=== PATIENT | female | born 1975 | race American Indian/Alaskan Native ===

== ENCOUNTER 2017-04-13 08:32 | Inpatient (IN) | payer MEDICAID ==
[2017-04-13 08:51] VITALS: O2SAT 98
--- NOTE | 2017-04-13 08:52 | C.PDOC ---
History Of Present Illness Patient is a 41 year old female who is psychiatric transfer accepted for depression. Patient states she has suicidal ideation, reports she stopped taking her regular medications thinking that would cause her to . Patient also reports daily ETOH use. Denies any physical complaints at this time. Time Seen by Provider: 04/13/17 08:36 Chief Complaint (Nursing): Psychiatric Evaluation History Per: Patient History/Exam Limitations: no limitations Onset/Duration Of Symptoms: Days Current Symptoms Are (Timing): Still Present Suicide/Self Injury Attempted (Context): Other (Stopped taking medications) Modifying Factor(s): Alcohol Associated Symptoms: Depression, Suicidal Thoughts, Suicidal Plan Involuntary Hold By: None Recent travel outside of the [place]: No Past Medical History Reviewed: Historical Data, Nursing Documentation, Vital Signs Vital Signs: Last Vital Signs Temp 97.6 F 04/13/17 08:43 Pulse 77 04/13/17 08:43 Resp 20 04/13/17 08:43 BP 126/80 04/13/17 08:54 Pulse Ox 98 04/13/17 08:52 - Medical History PMH: HTN, Hypercholesterolemia Surgical History: No Surg Hx - Social History Hx Alcohol Use: Yes Hx Substance Use: Yes - Immunization History Hx Tetanus Toxoid Vaccination: No Hx Influenza Vaccination: No Hx Pneumococcal Vaccination: No Review Of Systems Except As Marked, All Systems Reviewed And Found Negative. Psych: Positive for: Depression, Suicidal ideation Physical Exam - Physical Exam Appears: Non-toxic, No Acute Distress Skin: Normal Color, Warm, Dry Head: Atraumatic, Normacephalic Eye(s): bilateral: Normal Inspection, EOMI Oral Mucosa: Moist Chest: Symmetrical, No Tenderness Cardiovascular: Rhythm Regular, No Murmur Respiratory: Normal Breath Sounds, No Rales, No Rhonchi, No Wheezing Gastrointestinal/Abdominal: Soft, No Tenderness Neurological/Psych: Oriented x3, Normal Speech, Normal Cognition, No Other ( Tremors) ED Course And Treatment O2 Sat by Pulse Oximetry: 98 (Room air) Pulse Ox Interpretation: Normal Medical Decision Making Medical Decision Making: No signs of ETOH withdrawal at this time. Disposition - Disposition Disposition Time: 08:53 - Clinical Impression Clinical Impression: Depression - Scribe Statement The provider has reviewed the documentation as recorded by the Scribe Kojo Gonzales All medical record entries made by the Scribe were at my direction and personally dictated by me. I have reviewed the chart and agree that the record accurately reflects my personal performance of the history, physical exam, medical decision making, and the department course for this patient. I have also personally directed, reviewed, and agree with the discharge instructions and disposition.
[2017-04-14] MEDS: Multiple Vitamins Tab PO SCH (09:25)
--- NOTE | 2017-04-14 12:45 | PCM.PYCHPN ---
Psychiatric Progress Note - Psychiatric Progress Note Patient seen today, length of contact: 15 min Patient Chief Complaint: I was feeling depressed and suicidal Problems Identified/Issues Discussed: Patient seen and evaluated, chart reviewed and discussed with the nurse. As per the staff, patient still appears isolated, depressed and withdrawn. Patient still reports depressed mood and reports at times feelings of hopelessness or helplessness. She reports withdrawal symptoms including cramps, back pain and sweating. However she denies any auditory or visual hallucinations or any psychotic symptoms. She is compliant with her medications and denies any side effects. Supportive therapy and psychoeducation were given. Medication Change: No Medical Record Reviewed: Yes Mental Status Examination - Cognitive Function Orientation: Person, Place, Situation, Time Memory: Intact Attention: WNL Concentration: Poor Association: WNL Fund of Knowledge: Poor - Mood Mood: Depressed, Anxious - Affect Affect: Constricted, Depressed - Speech Speech: Soft - Formal Thought Process Formal Thought Process: No Impairment - Suicidal Ideation Suicidal Ideation: No - Homicidal Ideation Homicidal Ideation: No Goal/Treatment Plan - Goal/Treatment Plan Need for Continued Stay: Discharge may exacerbated symptoms, Severe functional impairment Progress Toward Problem(s) and Goals/Treatment Plan: Major depressive disorder severe without psychotic features CBT Psychoeducation Supportive therapy, group therapy, individual therapy Zoloft 50 mg by mouth daily Trazodone 50 mg by mouth daily at bedtime Alcohol use disorder severe CBT Psychoeducation Supportive therapy, individual therapy Use [place] for abstinence Alcohol withdrawal uncomplicated CBT Psychoeducation Supportive therapy, individual therapy Librium when necessary Folic acid/thiamine/multivitamin Cocaine use disorder severe CBT Psychoeducation Supportive therapy, individual therapy Use [place] for abstinence HTN continue prescribed medications Monitor signs and symptoms DM continue prescribed medications Monitor signs and symptoms - Smoking Cessation Smoking Cessation Initiated: No
--- NOTE | 2017-04-14 14:51 | PCM.PSYCH ---
Initial Psychiatric Evaluation - Initial Psychiatric Evaluation Type of Admission: Voluntary Legal Status: Capacity Chief Complaint (in patient's own words): I was feeling depressed and suicidal History of Present Illness and Precipitating Events: This is a 41 years old AAF, who is currently unemployed and living alone with a history of depressive disorder, cocaine dependence and alcohol dependence came to the ED with alcohol intoxication, depressed mood and suicidal ideation. Patient reports a long history of depression, drinking and cocaine abuse. As per the patient, she is consuming increasing amounts of alcohol and cocaine since past few weeks. Patient reports that yesterday she consumed up to 3 pints of vodka and 20 24oz beers along with $50 worth of cocaine, became increasingly depressed and developed suicidal ideation with a plan to slit her wrist so came to the hospital to get help. Patient reports depressed and irritable mood, reports feelings of hopelessness and helplessness. She also reports withdrawal symptoms including nausea, shakes , anxiety and headaches. However, she denies any psychotic or manic symptoms. Patient denies any other substance abuse. Past medical history HTN, DM, Hypercholestrolimia Current Medications: Active Medications Generic Name Dose Route Start Last Admin Trade Name Freq PRN Reason Stop Dose Admin Acetaminophen 650 mg 04/13/17 09:29 Tylenol 325mg Tab PO Q6 PRN Fever >100.4 F Benztropine Mesylate 2 mg 04/13/17 09:29 04/13/17 09:53 Cogentin PO 2 mg Q6 PRN Administration Extra Pyramidal Symptoms Diphenhydramine HCl 50 mg 04/13/17 09:29 Benadryl PO Q6 PRN Extra Pyramidal Symptoms Haloperidol 5 mg 04/13/17 09:29 04/13/17 09:53 Haldol PO 5 mg Q8 PRN Administration Moderate Agitation Loperamide HCl 2 mg 04/13/17 09:29 Imodium PO Q8 PRN Diarrhea Ondansetron HCl 4 mg 04/13/17 09:29 Zofran Tab PO Q8H PRN Nausea/Vomiting Trazodone HCl 50 mg 04/13/17 22:00 Desyrel PO HS [facility] Past Psychiatric History - Past Psychiatric History Previous Treatment History: None Pertinent Medical Hx (Current Medical&Sleep Prob, Allergies): Allergies Allergy/AdvReac Type Severity Reaction Status Date / Time lisinopril Allergy SWELLING Verified 07/01/17 08:49 Sulfa (Sulfonamide Allergy RASH Verified 04/13/17 08:49 Antibiotics) Atorvastatin [Lipitor] 40 mg PO HS 04/13/17 MetFORMIN [glucOPHAGE] 1,000 mg PO BID 04/13/17 amLODIPine [Norvasc] 10 mg PO DAILY 04/13/17 Review of Systems - Review of Systems All systems: reviewed and no additional remarkable complaints except - Psychiatric Psychiatric: Anxiety, Depression, Irritability, Suicidal Ideation Mental Status Examination - Personal Presentation Personal Presentation: Looks stated age - Affect Affect: Constricted, Depressed - Motor Activity Motor Activity: Calm - Reliability in Providing Information Reliability in Providing Information: Good - Speech Speech: Organized - Mood Mood: Depressed, Anxious - Formal Thought Process Formal Thought Process: Delusions - Obsessions/Compulsions Obsessions: No Compulsions: No - Cognitive Functions Orientation: Person, Place, Situation, Time Sensorium: Alert Attention/Concentration: Attentive Abstract Thinking: [place] Estimate of Intelligence: Below average Judgement: Imparied, as evidence by: Poor judgement, Imparied, as evidence by: Lack of insight into illness - Risk Risk: Suicidal, Withdrawal, Diminished functioning - Strength & Assets Inventory Strength & Assets Inventory: Intelligence, Family support DSM 5 DX - DSM 5 DSM 5 Diagnosis: Major depressive disorder severe without psychotic features Alcohol use disorder severe Alcohol withdrawal uncomplicated Cocaine use disorder severe - Recommended/Plan of Treatment Treatment Recommendations and Plan of Treatment: Major depressive disorder severe without psychotic features CBT Psychoeducation Supportive therapy, group therapy, individual therapy Zoloft 50 mg by mouth daily Trazodone 50 mg by mouth daily at bedtime Alcohol use disorder severe CBT Psychoeducation Supportive therapy, individual therapy Use [place] for abstinence Alcohol withdrawal uncomplicated CBT Psychoeducation Supportive therapy, individual therapy Librium when necessary Folic acid/thiamine/multivitamin Cocaine use disorder severe CBT Psychoeducation Supportive therapy, individual therapy Use [place] for abstinence HTN continue prescribed medications Monitor signs and symptoms DM continue prescribed medications Monitor signs and symptoms - Smoking Cessation Smoking Cessation Initiated: No
[2017-04-15] MEDS: Multiple Vitamins Tab PO SCH (10:10)
--- NOTE | 2017-04-15 14:08 | PCM.PYCHPN ---
Psychiatric Progress Note - Psychiatric Progress Note Patient seen today, length of contact: 15 min Patient Chief Complaint: I m feeling depressed Problems Identified/Issues Discussed: Patient seen and evaluated, chart reviewed and discussed with the nurse. The patient reports improvement in her mood and reports somewhat improvement in her withdrawal symptoms, but she remained isolated and continued to pace back and forth in the hallways. The pt is compliant with medications and reports no side-effects. Symptoms are improving but needs more time to stabilize. After care discussed, support and psychoeducation given. Medication Change: Yes (Increase Zoloft) Medical Record Reviewed: Yes Mental Status Examination - Cognitive Function Orientation: Person, Place, Situation, Time Memory: Intact Attention: WNL Concentration: Poor Association: WNL Fund of Knowledge: Poor - Mood Mood: Depressed, Anxious - Affect Affect: Constricted, Depressed - Speech Speech: Soft - Formal Thought Process Formal Thought Process: No Impairment - Suicidal Ideation Suicidal Ideation: No - Homicidal Ideation Homicidal Ideation: No Goal/Treatment Plan - Goal/Treatment Plan Need for Continued Stay: Discharge may exacerbated symptoms, Severe functional impairment Progress Toward Problem(s) and Goals/Treatment Plan: Major depressive disorder severe without psychotic features CBT Psychoeducation Supportive therapy, group therapy, individual therapy Zoloft 100 mg by mouth daily Trazodone 50 mg by mouth daily at bedtime Alcohol use disorder severe CBT Psychoeducation Supportive therapy, individual therapy Use [place] for abstinence Alcohol withdrawal uncomplicated CBT Psychoeducation Supportive therapy, individual therapy Librium when necessary Folic acid/thiamine/multivitamin Cocaine use disorder severe CBT Psychoeducation Supportive therapy, individual therapy Use [place] for abstinence HTN continue prescribed medications Monitor signs and symptoms DM continue prescribed medications Monitor signs and symptoms - Smoking Cessation Smoking Cessation Initiated: No
[2017-04-16 07:41] VITALS: RESP 19
[2017-04-16] MEDS: Multiple Vitamins Tab PO SCH (09:42)
--- NOTE | 2017-04-16 12:43 | PCM.PYCHPN ---
Psychiatric Progress Note - Psychiatric Progress Note Patient seen today, length of contact: 15 min Patient Chief Complaint: I m feeling much better' Problems Identified/Issues Discussed: Patient seen and evaluated, chart reviewed and discussed with the nurse. The patient reports improvement in her mood and reports improvement in the withdrawal symptoms. She started socializing, and continued to pace back and forth in the hallways. The pt is compliant with medications and reports no side-effects. Symptoms are improving but needs more time to stabilize. After care discussed, support and psychoeducation given. Medication Change: Yes (Increase Zoloft) Medical Record Reviewed: Yes Mental Status Examination - Cognitive Function Orientation: Person, Place, Situation, Time Memory: Intact Attention: WNL Concentration: Poor Association: WNL Fund of Knowledge: Poor - Mood Mood: Depressed, Anxious - Affect Affect: Constricted, Depressed - Speech Speech: Soft - Formal Thought Process Formal Thought Process: No Impairment - Suicidal Ideation Suicidal Ideation: No - Homicidal Ideation Homicidal Ideation: No Goal/Treatment Plan - Goal/Treatment Plan Need for Continued Stay: Discharge may exacerbated symptoms, Severe functional impairment Progress Toward Problem(s) and Goals/Treatment Plan: Major depressive disorder severe without psychotic features CBT Psychoeducation Supportive therapy, group therapy, individual therapy Zoloft 100 mg by mouth daily Trazodone 50 mg by mouth daily at bedtime Alcohol use disorder severe CBT Psychoeducation Supportive therapy, individual therapy Use [place] for abstinence Alcohol withdrawal uncomplicated CBT Psychoeducation Supportive therapy, individual therapy Librium when necessary Folic acid/thiamine/multivitamin Cocaine use disorder severe CBT Psychoeducation Supportive therapy, individual therapy Use [place] for abstinence HTN continue prescribed medications Monitor signs and symptoms DM continue prescribed medications Monitor signs and symptoms
[2017-04-16] MEDS ORDERED: Magnesium Hydroxide Susp 30 ml UD PO PRN (12:54)
[2017-04-17] MEDS: Multiple Vitamins Tab PO SCH (10:05)
[2017-04-17 13:44] VITALS: TEMP 98.3
--- NOTE | 2017-04-17 13:59 | PCM.PYCHPN ---
Psychiatric Progress Note - Psychiatric Progress Note Patient seen today, length of contact: 15 min Patient Chief Complaint: I am ready to leave Problems Identified/Issues Discussed: Patient seen and evaluated, chart reviewed and discussed with the nurse. The patient reports improvement in her mood and withdrawal symptoms. The pt is compliant with medications and reports no side-effects. Symptoms are improving but needs more time to stabilize. After care discussed, support and psychoeducation given. Medication Change: Yes (Increase Zoloft) Medical Record Reviewed: Yes Mental Status Examination - Cognitive Function Orientation: Person, Place, Situation, Time Memory: Intact Attention: WNL Concentration: WNL Association: WNL Fund of Knowledge: Poor - Mood Mood: Anxious - Affect Affect: Constricted, Depressed - Speech Speech: Soft - Formal Thought Process Formal Thought Process: No Impairment - Suicidal Ideation Suicidal Ideation: No - Homicidal Ideation Homicidal Ideation: No Goal/Treatment Plan - Goal/Treatment Plan Need for Continued Stay: Discharge may exacerbated symptoms, Severe functional impairment Progress Toward Problem(s) and Goals/Treatment Plan: Major depressive disorder severe without psychotic features CBT Psychoeducation Supportive therapy, group therapy, individual therapy Zoloft 100 mg by mouth daily Trazodone 50 mg by mouth daily at bedtime Alcohol use disorder severe CBT Psychoeducation Supportive therapy, individual therapy Use [place] for abstinence Alcohol withdrawal uncomplicated CBT Psychoeducation Supportive therapy, individual therapy Librium when necessary Folic acid/thiamine/multivitamin Cocaine use disorder severe CBT Psychoeducation Supportive therapy, individual therapy Use [place] for abstinence HTN continue prescribed medications Monitor signs and symptoms DM continue prescribed medications Monitor signs and symptoms
[2017-04-17 16:25] VITALS: BP 129/80; PULSE 67
[2017-04-17 19:54] LABS: BLOOD UREA NITROGEN 18 mg/dL (7-17); GFR AFRICAN-AMERICAN > 60; GFR NON-AFRICAN AMERICAN > 60
[2017-04-17 19:55] LABS: BASO # 0.1 K/uL (0.0-0.2); BASO % 1.2 % (0.0-2.0); CALCIUM 9.8 mg/dl (8.6-10.4); EOS # 0.2 K/uL (0.0-0.7); EOS % 2.5 % (0.0-4.0); LYMPH # 2.4 K/uL (1.0-4.3); LYMPH % 36.6 % (20.0-40.0); MAGNESIUM 1.5 mg/dL (1.6-2.3); MEAN CELL VOLUME 91.6 fL (81.0-99.0); MEAN CORPUSCULAR HEMOGLOBIN 29.7 pg (27.0-31.0); MEAN CORPUSCULAR HGB CONC 32.5 g/dL (33.0-37.0); MEAN PLATELET VOLUME 9.4 fL (7.2-11.7); MONO # 0.6 K/uL (0.0-0.8); MONO % 8.8 % (0.0-10.0); NEUT # 3.3 K/uL (1.8-7.0); NEUT % 50.9 % (50.0-75.0); RBC 4.05 Mil/uL (3.80-5.20); WHITE BLOOD COUNT 6.5 K/uL (4.8-10.8)
--- NOTE | 2017-04-17 20:31 | CP.PCM.HP ---
<Krista Ireland - Last Filed: 04/17/17 22:02> History of Present Illness - History of Present Illness History of Present Illness: Medicine CONSULT Note CC: Uncontrolled Sugars HPI: 41F with PMHx of HTN, HLD, and DM who is admitted in for Alcohol abuse disorder and suicidal ideation. Medicine team was consulted to manage her diabetes. Patient reports she does not have a primary care physician. She visits a clinic in [place], where she has labs drawn and provided with prescriptions for her current medications. She reports being complaint with her medications. However, the past month she noticed an increase in her urination and thirst. Admits to having a poor diet, with lots of carbs and sugar. Denied fever, chills, chest pain, abdominal pain, n/v/d/c, dysuria or hematuria. PMHx: HTN, HLD, and DM PSHx: denied Meds: As per MAR All: ACEi and sulfa- angioedema SHx: 15-20 cigarretes per day since age 16, 10 packs of beer (6 cans/ pack) and .5-1.0 L of rum, occasional cocaine use FHx: Unremarkable Present on Admission - Present on Admission Any Indicators Present on Admission: No Review of Systems - Constitutional Constitutional: absent: Chills, Fever - EENT Eyes: absent: Blurred Vision, Change in Vision Ears: absent: Dizziness Nose/Mouth/Throat: absent: Sore Throat, Neck Mass - Breasts Breasts: absent: Pain - Cardiovascular Cardiovascular: absent: Chest Pain, Chest Pain at Rest - Respiratory Respiratory: absent: Cough, Dyspnea - Gastrointestinal Gastrointestinal: absent: Abdominal Pain, Nausea, Vomiting - Genitourinary Genitourinary: absent: Dysuria, Pyuria - Musculoskeletal Musculoskeletal: absent: Back Pain - Integumentary Integumentary: absent: Wounds - Neurological Neurological: absent: Dizziness, Syncope, Weakness - Endocrine Endocrine: Polyphagia, Polyuria Past Patient History - Past Social History Smoking Status: Heavy Smoker > 10 Cigarettes Daily - CARDIAC Hx Hypercholesterolemia: Yes Hx Hypertension: Yes - PULMONARY Hx Respiratory Disorders: No - NEUROLOGICAL Hx Neurological Disorder: No - HEENT Hx HEENT Problems: No - RENAL Hx Chronic Kidney Disease: No - ENDOCRINE/METABOLIC Hx Diabetes Mellitus Type 2: Yes - HEMATOLOGICAL/ONCOLOGICAL Hx Blood Disorders: No - INTEGUMENTARY Hx Dermatological Problems: No - MUSCULOSKELETAL/RHEUMATOLOGICAL Hx Musculoskeletal Disorders: No - GASTROINTESTINAL Hx Gastrointestinal Disorders: No - GENITOURINARY/GYNECOLOGICAL Hx Genitourinary Disorders: No - PSYCHIATRIC Hx Substance Use: Yes - SURGICAL HISTORY Hx Surgeries: No - ANESTHESIA Hx Anesthesia: No Meds Allergies/Adverse Reactions: Allergies Allergy/AdvReac Type Severity Reaction Status Date / Time lisinopril Allergy SWELLING Verified 04/13/17 08:49 Sulfa (Sulfonamide Allergy RASH Verified 04/13/17 08:49 Antibiotics) Physical Exam - Constitutional Appears: No Acute Distress - Head Exam Head Exam: NORMAL INSPECTION, NORMOCEPHALIC - Eye Exam Eye Exam: EOMI, Normal appearance, PERRL Pupil Exam: NORMAL ACCOMODATION - ENT Exam ENT Exam: Mucous Membranes Moist, Normal Exam - Neck Exam Neck exam: Positive for: Normal Inspection - Respiratory Exam Respiratory Exam: Clear to Auscultation Bilateral, NORMAL BREATHING PATTERN - Cardiovascular Exam Cardiovascular Exam: REGULAR RHYTHM, RRR, +S1, +S2 - GI/Abdominal Exam GI & Abdominal Exam: Normal Bowel Sounds, Soft. absent: Tenderness - Extremities Exam Extremities exam: Positive for: normal inspection. Negative for: pedal edema, tenderness, pedal pulses present - Neurological Exam Neurological exam: Alert, Oriented x3 - Psychiatric Exam Psychiatric exam: Normal Affect, Normal Mood - Skin Skin Exam: Intact, Normal Color, Petechiae, Warm Results - Vital Signs Recent Vital Signs: Last Vital Signs Temp 98.3 F 04/17/17 13:43 Pulse 67 04/17/17 16:20 Resp 19 04/17/17 13:43 BP 129/80 04/17/17 16:20 Pulse Ox 98 04/13/17 09:11 - Labs Result Diagrams: 04/17/17 19:34 04/17/17 19:34 Labs: Laboratory Results - last 24 hr 04/17/17 04/17/17 04/17/17 07:42 16:24 19:34 WBC 6.5 RBC 4.05 Hgb 12.0 Hct 37.1 MCV 91.6 MCH 29.7 MCHC 32.5 L RDW 14.0 Plt Count 242 MPV 9.4 Neut % (Auto) 50.9 Lymph % (Auto) 36.6 [place] % (Auto) 8.8 Eos % (Auto) 2.5 Baso % (Auto) 1.2 Neut # 3.3 Lymph # 2.4 Starke # 0.6 Eos # 0.2 Baso # 0.1 Sodium Potassium Chloride Carbon Dioxide Anion Gap BUN Creatinine Est GFR ( Amer) Est GFR (Non-Af Amer) POC Glucose (mg/dL) 266 H 321 H Random Glucose Calcium Phosphorus Magnesium 04/17/17 19:34 WBC RBC Hgb Hct MCV MCH MCHC RDW Plt Count MPV Neut % (Auto) Lymph % (Auto) [place] % (Auto) Eos % (Auto) Baso % (Auto) Neut # Lymph # Starke # Eos # Baso # Sodium 132 Potassium 4.2 Chloride 95 L Carbon Dioxide 23 Anion Gap 18 BUN 18 H Creatinine 0.6 L Est GFR ( Amer) > 60 Est GFR (Non-Af Amer) > 60 POC Glucose (mg/dL) Random Glucose 347 H Calcium 9.8 Phosphorus 4.5 Magnesium 1.5 L Assessment & Plan - Assessment and Plan (Free Text) Assessment: 41F with PMHx of HTN, HLD, and DM who is admitted in 5E for Alcohol abuse disorder and suicidal ideation. Medicine team was consulted to manage her diabetes. Plan: Diabetes * Carb Consistent Diet * Metformin 1000mg PO BID * F/U Hgba1c HTN * Norvasc 10mg PO daily, Clonidine 0.1mg PO Q4H PRN HLD * Crestor 20mg PO QHS * F/U lipid panel Hypomagnesia * Mag OX * F/u mag levels Major depressive disorder severe without psychotic features - management as per Psych Alcohol use disorder severe - management as per Psych Alcohol withdrawal uncomplicated - management as per Psych Cocaine use disorder severe - management as per Psych Prophylactic Measures * GI PPX: Protonix 40mg PO daily DW Beka Hernandez DO, PGY-1 <Neil Gibbs - Last Filed: 04/18/17 06:28> Results - Vital Signs Recent Vital Signs: Last Vital Signs Temp 98.3 F 04/17/17 13:43 Pulse 67 04/17/17 16:20 Resp 19 04/17/17 13:43 BP 129/80 04/17/17 16:20 Pulse Ox 98 04/13/17 09:11 - Labs Result Diagrams: 04/17/17 19:34 04/17/17 19:34 Labs: Laboratory Results - last 24 hr 04/17/17 04/17/17 04/17/17 07:42 16:24 19:34 WBC 6.5 RBC 4.05 Hgb 12.0 Hct 37.1 MCV 91.6 MCH 29.7 MCHC 32.5 L RDW 14.0 Plt Count 242 MPV 9.4 Neut % (Auto) 50.9 Lymph % (Auto) 36.6 [place] % (Auto) 8.8 Eos % (Auto) 2.5 Baso % (Auto) 1.2 Neut # 3.3 Lymph # 2.4 Starke # 0.6 Eos # 0.2 Baso # 0.1 Sodium Potassium Chloride Carbon Dioxide Anion Gap BUN Creatinine Est GFR ( Amer) Est GFR (Non-Af Amer) POC Glucose (mg/dL) 266 H 321 H Random Glucose Calcium Phosphorus Magnesium 04/17/17 19:34 WBC RBC Hgb Hct MCV MCH MCHC RDW Plt Count MPV Neut % (Auto) Lymph % (Auto) [place] % (Auto) Eos % (Auto) Baso % (Auto) Neut # Lymph # Starke # Eos # Baso # Sodium 132 Potassium 4.2 Chloride 95 L Carbon Dioxide 23 Anion Gap 18 BUN 18 H Creatinine 0.6 L Est GFR ( Amer) > 60 Est GFR (Non-Af Amer) > 60 POC Glucose (mg/dL) Random Glucose 347 H Calcium 9.8 Phosphorus 4.5 Magnesium 1.5 L Assessment & Plan - Date & Time Date: 04/18/17 (I have seen and examined the patient. I agree with the findings and plan of care as documented by Dr. Ireland. Medicine consulted to manage diabetes. Also with history of hypertension. Continue metformin. Monitor accuchecks. Continue norvasc and clonidine. Monitor for acute changes. Adjust meds as needed.) Time: 06:27 Attending/Attestation - Attestation I have personally seen and examined this patient.: Yes I have fully participated in the care of the patient.: Yes I have reviewed all pertinent clinical information: Yes
[2017-04-17] MEDS ORDERED: Magnesium Oxide 400 mg Tab UD PO SCH (20:45)
[2017-04-18 08:50] LABS: HEMOGLOBIN 12.2 g/dL (11.0-16.0); MEAN CELL VOLUME 92.1 fL (81.0-99.0); MEAN CORPUSCULAR HEMOGLOBIN 29.6 pg (27.0-31.0); MEAN CORPUSCULAR HGB CONC 32.2 g/dL (33.0-37.0); MEAN PLATELET VOLUME 9.1 fL (7.2-11.7); RBC 4.13 Mil/uL (3.80-5.20); RED CELL DISTRIBUTION WIDTH 13.7 % (11.5-14.5); WHITE BLOOD COUNT 5.2 K/uL (4.8-10.8)
[2017-04-18 09:01] LABS: ALBUMIN 3.8 g/dL (3.5-5.0)
[2017-04-18 09:03] LABS: GFR AFRICAN-AMERICAN > 60; GFR NON-AFRICAN AMERICAN > 60
[2017-04-18 09:04] LABS: ALT/SGPT 42 U/L (9-52); AST/SGOT 24 U/L (14-36); BLOOD UREA NITROGEN 13 mg/dL (7-17)
[2017-04-18 09:05] LABS: CALCIUM 9.2 mg/dl (8.6-10.4); HDL CHOLESTEROL 45 mg/dL (30-70); MAGNESIUM 1.6 mg/dL (1.6-2.3)
[2017-04-18 09:16] LABS: LDL CHOLESTEROL 178 mg/dL (0-129)
[2017-04-18] MEDS: Multiple Vitamins Tab PO SCH (09:52)
--- NOTE | 2017-04-18 10:11 | PCM.PYCHDC ---
Mental Status Examination - Mental Status Examination Orientation: Person, Place, Situation, Time Memory: Intact Mood: Neutral Affect: Constricted Speech: Soft Attention: WNL Concentration: WNL Association: WNL Fund of Knowledge: WNL Formal Thought Process: No Impairment Description of patient's judgement and insight: good, fair Psychotic Thoughts and Behaviors: denies any AVH Suicidal Ideation: No Current Homicidal Ideation?: No Discharge Summary - Discharge Note Reason for Hospitalization: This is a 41 years old AAF, who is currently unemployed and living alone with a history of depressive disorder, cocaine dependence and alcohol dependence came to the ED with alcohol intoxication, depressed mood and suicidal ideation. Patient reports a long history of depression, drinking and cocaine abuse. As per the patient, she is consuming increasing amounts of alcohol and cocaine since past few weeks. Patient reports that yesterday she consumed up to 3 pints of vodka and 20 24oz beers along with $50 worth of cocaine, became increasingly depressed and developed suicidal ideation with a plan to slit her wrist so came to the hospital to get help. Patient reports depressed and irritable mood, reports feelings of hopelessness and helplessness. She also reports withdrawal symptoms including nausea, shakes , anxiety and headaches. However, she denies any psychotic or manic symptoms. Patient denies any other substance abuse. Laboratory Data: Abnormal Lab Results 04/17/17 04/17/17 04/17/17 16:24 19:34 19:34 WBC 6.5 RBC 4.05 Hgb 12.0 Hct 37.1 MCV 91.6 MCH 29.7 MCHC 32.5 L RDW 14.0 Plt Count 242 MPV 9.4 Neut % (Auto) 50.9 Lymph % (Auto) 36.6 Rosebud % (Auto) 8.8 Eos % (Auto) 2.5 Baso % (Auto) 1.2 Neut # 3.3 Lymph # 2.4 Rosebud # 0.6 Eos # 0.2 Baso # 0.1 Sodium 132 Potassium 4.2 Chloride 95 L Carbon Dioxide 23 Anion Gap 18 BUN 18 H Creatinine 0.6 L Est GFR ( Amer) > 60 Est GFR (Non-Af Amer) > 60 POC Glucose (mg/dL) 321 H Random Glucose 347 H Hemoglobin A1c Calcium 9.8 Phosphorus 4.5 Magnesium 1.5 L Total Bilirubin AST ALT Alkaline Phosphatase Total Protein Albumin Globulin Albumin/Globulin Ratio Triglycerides Cholesterol LDL Cholesterol Direct HDL Cholesterol 07/06/17 07/06/17 07/06/17 07:27 08:37 08:37 WBC 5.2 RBC 4.13 Hgb 12.2 Hct 38.1 MCV 92.1 MCH 29.6 MCHC 32.2 L RDW 13.7 Plt Count 216 MPV 9.1 Neut % (Auto) Lymph % (Auto) Rosebud % (Auto) Eos % (Auto) Baso % (Auto) Neut # Lymph # Rosebud # Eos # Baso # Sodium 131 L Potassium 4.1 Chloride 96 L Carbon Dioxide 26 Anion Gap 13 BUN 13 Creatinine 0.6 L Est GFR ( Amer) > 60 Est GFR (Non-Af Amer) > 60 POC Glucose (mg/dL) 292 H Random Glucose 295 H Hemoglobin A1c Calcium 9.2 Phosphorus 4.0 Magnesium 1.6 Total Bilirubin 0.4 AST 24 ALT 42 Alkaline Phosphatase 82 Total Protein 7.5 Albumin 3.8 Globulin 3.7 Albumin/Globulin Ratio 1.0 Triglycerides 187 H Cholesterol 329 H LDL Cholesterol Direct 178 H HDL Cholesterol 45 04/18/17 08:37 WBC RBC Hgb Hct MCV MCH MCHC RDW Plt Count MPV Neut % (Auto) Lymph % (Auto) Rosebud % (Auto) Eos % (Auto) Baso % (Auto) Neut # Lymph # Rosebud # Eos # Baso # Sodium Potassium Chloride Carbon Dioxide Anion Gap BUN Creatinine Est GFR ( Amer) Est GFR (Non-Af Amer) POC Glucose (mg/dL) Random Glucose Hemoglobin A1c 11.9 H Calcium Phosphorus Magnesium Total Bilirubin AST ALT Alkaline Phosphatase Total Protein Albumin Globulin Albumin/Globulin Ratio Triglycerides Cholesterol LDL Cholesterol Direct HDL Cholesterol Consultations:: List each consultation separately and include: 1. Reason for request. 2. Findings. 3. Follow-up Summary of Hospital Course include:: 1. Description of specific treatment plan utilized for patients during their course of treatmen. 2. Summarize the time- course for resolution of acute symptoms and/or regressed behaviors. 3. Describe issues identified and worked on during hospitalization. 4. Describe medication utilized. 5. Describe medical problems identified and treated. 6. Reassessment of suicide risk Summary of Hospital Course: During the course of her stay, patient (pt) started progressively improving and she no longer remained anxious, depressed and suicidal. Her mood was getting better and she started attending groups and meetings and started socializing. The doses of her medications were maximized and patient denied any feelings of hopelessness, helplessness, and worthlessness, denied any problem with the sleep or appetite, denied suicidal ideation or homicidal ideation. Pt denied any auditory or visual hallucinations. Patient reported improvement in her mood and tolerated these medications very well and denied any side effects. - Final Diagnosis (DSM 5) Condition upon Discharge: STABLE DSM 5: Major depressive disorder severe without psychotic features Alcohol use disorder severe Alcohol withdrawal uncomplicated Cocaine use disorder severe Disposition: HOME/ ROUTINE Follow-up Treatment Plan: Education: Pt was educated and counseled about the risks and benefits of taking and not taking medications. Pt was educated and counseled about the risks of drinking and abusing drugs. Pt was educated and counseled to go to the ER or call 911 if pt develop suicidal ideation or homicidal ideation, worsening of symptoms or severe side effects of the meds. Prescriptions/Medication Reconciliation: amLODIPine [Norvasc] 10 mg PO DAILY #30 tab metFORMIN [glucOPHAGE] 1,000 mg PO BID #60 tab Rosuvastatin Calcium [Crestor] 20 mg PO HS #30 tab Sertraline [Zoloft] 100 mg PO DAILY #30 tab traZODone [Desyrel] 100 mg PO HS #30 tab - Smoking Cessation Smoking Cessation Medication prescribed: No - Antipsychotic Medications Pt discharged on 2 or more routine antipsychotic medications: No
--- NOTE | 2017-04-18 20:39 | CP.PCM.PN ---
<Sandy Bee - Last Filed: 04/18/17 20:35> Subjective - Date & Time of Evaluation Date of Evaluation: 04/18/17 Time of Evaluation: 20:35 - Subjective Subjective: Medicine Progress Note- Dr. Granger Service Patient was seen and examined at bedside in no acute distress. Patient states she is feeling well and has no complaints. Patient denies chest pain, abdominal pain, nausea, vomiting, diarrhea, constipation, dizziness, and numbness and tingling. Medicine is signing off as patient is stable. Objective - Vital Signs/Intake and Output Vital Signs (last 24 hours): Temp Pulse Resp BP Pulse Ox 98.3 F 67 19 129/80 98 04/17/17 13:43 04/17/17 16:20 04/17/17 13:43 04/17/17 16:20 04/13/17 09:11 - Labs Labs: 04/18/17 08:37 04/18/17 08:37 - Constitutional Appears: No Acute Distress - Head Exam Head Exam: NORMAL INSPECTION, NORMOCEPHALIC - Eye Exam Eye Exam: EOMI, Normal appearance - ENT Exam ENT Exam: Mucous Membranes Moist - Neck Exam Neck Exam: Full ROM, Normal Inspection - Respiratory Exam Respiratory Exam: Clear to Ausculation Bilateral, NORMAL BREATHING PATTERN. absent: Rhonchi, Wheezes - Cardiovascular Exam Cardiovascular Exam: REGULAR RHYTHM, +S1, +S2 - GI/Abdominal Exam GI & Abdominal Exam: Soft, Normal Bowel Sounds. absent: Tenderness - Extremities Exam Extremities Exam: Normal Inspection. absent: Calf Tenderness, Pedal Edema, Tenderness - Neurological Exam Neurological Exam: Alert, Awake, Oriented x3 - Psychiatric Exam Psychiatric exam: Normal Affect, Normal Mood - Skin Skin Exam: Dry, Intact, Normal Color, Warm Assessment and Plan (1) Diabetes type 2, uncontrolled Assessment & Plan: HgbA1c 11.9 Lipid: TG 197, Cholesterol 329, LDL 178, HDL 45 Consistent carbohydrate diet Patient takes Metformin 1000mg PO BID Patient to start Januvia 50mg PO Daily Status: Acute <Penelope Granger V - Last Filed: 04/19/17 23:04> Objective - Vital Signs/Intake and Output Vital Signs (last 24 hours): Temp Pulse Resp BP Pulse Ox 98.3 F 67 19 129/80 98 04/17/17 13:43 04/17/17 16:20 04/17/17 13:43 04/17/17 16:20 04/13/17 09:11 - Labs Labs: 04/18/17 08:37 04/18/17 08:37 Attending/Attestation - Attestation I have personally seen and examined this patient.: Yes I have fully participated in the care of the patient.: Yes I have reviewed all pertinent clinical information, including history, physical exam and plan: Yes Notes (Text): This is late computer entry for 04/18/17. Patient and I met on 04/17/17 and consult signed out to nighttime attending due to shift change. Patient had a length discussion regarding her diabetes and alcoholism. Patient is aware of the risks associated with diabetes and needs to be vigilant. Per Psych, patient is discharge today. Patient discharged prior to my arrival. Patient recommended follow-up with primary care doctor or associated general medicine clinic in [place], [place] where she is from.
== END 2017-04-18 11:27 | disposition home or self-care (01) | DRG 430 ==
LOC: C.ER 08:32 → C.5E 08:53
PROVIDERS: ADMIT Psychiatry & Neurology Psychiatry; ATTEND Psychiatry & Neurology Psychiatry
PROC: GZ3ZZZZ Medication Management (ICD-10-PCS; principal; 2017-04-13)
PROC: HZ89ZZZ Medication Management for Substance Abuse Treatment, Other Replacement Medication (ICD-10-PCS; 2017-04-13)
PROC: HZ59ZZZ Individual Psychotherapy for Substance Abuse Treatment, Supportive (ICD-10-PCS; 2017-04-13)
PROC: GZHZZZZ Group Psychotherapy (ICD-10-PCS; 2017-04-13)
PROC: HZ59ZZZ Individual Psychotherapy for Substance Abuse Treatment, Supportive (ICD-10-PCS; 2017-04-13)
DX: F32.2 Major depressive disorder, single episode, severe without psychotic features (principal); R45.851 Suicidal ideations; F10.230 Alcohol dependence with withdrawal, uncomplicated; F14.10 Cocaine abuse, uncomplicated; I10 Essential (primary) hypertension; E11.65 Type 2 diabetes mellitus with hyperglycemia; E78.00 Pure hypercholesterolemia, unspecified; E78.5 Hyperlipidemia, unspecified; F17.210 Nicotine dependence, cigarettes, uncomplicated